=== PATIENT | female | born 2000 | race Caucasian/White ===

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

== ENCOUNTER 2020-10-01 19:14 | Emergency (ER) | payer OTHER ==
[~2020-10-01] VITALS: Ht 162.6 cm; Wt 59.0 kg
[2020-10-01 19:30] VITALS: Ht 162.6 cm; Wt 59.0 kg
[2020-10-01 21:40] LABS: BASOPHIL % 0.5 % (0.2-1.3); PLATELET COUNT 353 x10^3mcL (179-408); RED CELL DISTRIBUTION WIDTH 12.6 % (12.3-17.7)
[2020-10-01 21:52] LABS: CARBON DIOXIDE 29.8 mmol/L (21-32); CHLORIDE SERUM 100 mmol/L (98-107); CREATININE SERUM 0.7 mg/dL (0.6-1.0); GFR1 > 60 mL/min; GLUCOSE SERUM 141 mg/dL (74-106); POTASSIUM SERUM 3.4 mmol/L (3.5-5.1); SODIUM SERUM 140 mmol/L (136-145)
[2020-10-01 22:08] LABS: ALBUMIN 4.7 g/dL (3.4-5.0); ALKALINE PHOSPHATASE 89 U/L (46-116); ALT/SGPT 20 U/L (14-59); AST/SGOT 10 U/L (15-37); BILIRUBIN TOTAL 0.35 mg/dL (0.20-1.00); FREE T4 1.26 ng/dL (0.76-1.46); MAGNESIUM 2.2 mg/dL (1.8-2.4)
[2020-10-01 23:17] LABS: AMPHETAMINE QUAL UR NONE DETECTED (See below)
[2020-10-01 23:47] VITALS: BP 119/71
== END 2020-10-02 00:13 | disposition home or self-care (01) ==
LOC: ED 19:14
PROVIDERS: Emergency Medicine
DX: R00.2 Palpitations (principal); Z20.828 Contact with and (suspected) exposure to other viral communicable diseases; R25.1 Tremor, unspecified
CPT/HCPCS: 84439; U0003

== ENCOUNTER 2020-10-04 14:47 | Emergency (ER) | payer OTHER, SELFPAY ==
[~2020-10-04] VITALS: Ht 170.2 cm; Wt 59.9 kg
[2020-10-04 14:49] VITALS: Ht 170.2 cm; Wt 59.9 kg
[2020-10-04 16:32] VITALS: BP 143/92
== END 2020-10-04 16:32 | disposition home or self-care (01) ==
LOC: ED 14:47
DX: R00.2 Palpitations (principal); F12.90 Cannabis use, unspecified, uncomplicated